=== PATIENT | female | born 1950 | race Native Hawaiian/Other Pacific Islander ===

== ENCOUNTER 2022-08-02 14:45 | Emergency (ER) | payer OTHER ==
[~2022-08-02] VITALS: Ht 172.7 cm; Wt 68.0 kg
[2022-08-02 15:10] LABS: PLATELET COUNT 201 K/uL (152-353)
[2022-08-02 15:21] LABS: POTASSIUM 3.6 mmol/L (3.6-5.2); SODIUM 138 mmol/L (136-145)
[2022-08-02 19:36] VITALS: BP 126/54
== END 2022-08-02 19:36 | disposition home or self-care (01) ==
LOC: ED 14:45
PROVIDERS: Family Medicine
DX: S29.011A Strain of muscle and tendon of front wall of thorax, initial encounter (principal); R51.9 Headache, unspecified; V89.2XXA Person injured in unspecified motor-vehicle accident, traffic, initial encounter
CPT/HCPCS: 80053; 84484; 85027; 93005; 99283; Q9963